=== PATIENT | female | born 1955 | race Caucasian/White ===

== ENCOUNTER 2021-03-22 20:04 | Emergency (ER) | payer OTHER ==
[2021-03-22 20:17] VITALS: TEMP 98.5; BMI 32.7
[2021-03-22 21:36] LABS: BASO % 0.6 % (0-2.0); EOS % 1.4 % (0-4.5); HEMATOCRIT 41.2 % (32.4-45.2); HEMOGLOBIN 13.9 GM/dL (10.7-15.3); LYMPH % 23.5 % (8-40); MCH 28.5 pg (25.7-33.7); MCHC 33.7 g/dl (32.0-36.0); MEAN CELL VOLUME 84.6 fl (80-96); MEAN PLT VOLUME 7.2 fl (7.5-11.1); MONO % 6.4 % (3.8-10.2); NEUT % 68.1 % (42.8-82.8); PLATELET COUNT 369 10^3/uL (134-434); RBC 4.87 M/mm3 (3.60-5.2); RDW 14.4 % (11.6-15.6); WHITE BLOOD COUNT 12.4 K/mm3 (4.0-10.0)
[2021-03-22 21:58] LABS: CHLORIDE 106 mmol/L (98-107); SODIUM 142 mmol/L (136-145)
[2021-03-22 22:00] LABS: ALBUMIN 3.9 g/dl (3.4-5.0); ANION GAP 9 MMOL/L (8-16); BLOOD UREA NITROGEN 20.6 mg/dL (7-18); CALCIUM 9.7 mg/dL (8.5-10.1); CO2 27 mmol/L (21-32); GLUCOSE,RANDOM 136 mg/dL (74-106); MAGNESIUM 1.7 mg/dL (1.8-2.4)
[2021-03-22 22:03] LABS: CREATININE 0.6 mg/dL (0.55-1.3); SGPT/ALT 51 U/L (13-61)
[2021-03-22 22:04] LABS: SGOT/AST 20 U/L (15-37)
[2021-03-22 22:05] LABS: BILIRUBIN,TOTAL 0.5 mg/dL (0.2-1); TOT PROT 7.3 g/dl (6.4-8.2)
[2021-03-22 22:06] LABS: ALK PHOS 68 U/L (45-117)
[2021-03-22 22:22] VITALS: BP 127/84; PULSE 92
== END 2021-03-22 23:12 | disposition home or self-care (01) ==
LOC: JER 20:04
DX: R07.9 Chest pain, unspecified (principal)
CPT/HCPCS: 36415; 71046-TC-FY; 80053; 82550; 83735; 84484; 85025; 85379; 93005; 93010; 99285-25

== ENCOUNTER 2024-06-08 22:05 | Emergency (ER) | payer OTHER ==
[2024-06-08 22:11] VITALS: BMI 33.0
[2024-06-08 22:22] VITALS: TEMP 98.8
[2024-06-08 22:43] LABS: HEMATOCRIT 52.9 % (32.4-45.2); HEMOGLOBIN 17.1 G/dL (10.7-15.3); MCHC 32.4 g/dl (32.0-36.0); MEAN CELL VOLUME 89.6 fl (80-96); MEAN PLT VOLUME 7.8 fl (7.5-11.1); PLATELET COUNT 345.2 10^3/uL (134-434); RDW 14.1 % (11.6-15.6); WHITE BLOOD COUNT 12.1 10^3/uL (4.0-10.8)
[2024-06-08 22:56] LABS: ALBUMIN 4.6 g/dl (3.4-5.0); BILIRUBIN,TOTAL 0.8 mg/dl (0.2-1); CALCIUM 9.9 mg/dl (8.5-10.1); CREATININE 0.7 mg/dl (0.6-1.3); POTASSIUM 3.6 mmol/L (3.5-5.1)
[2024-06-08] MEDS: SODIUM CHLORIDE 1,000 ML IV ONE (23:11)
[2024-06-09 01:13] VITALS: BP 142/85; PULSE 88; RESP 18
== END 2024-06-09 03:13 | disposition home or self-care (01) ==
LOC: FER 22:05
PROC: 3E0337Z Introduction of Electrolytic and Water Balance Substance into Peripheral Vein, Percutaneous Approach (ICD-10-PCS; principal; 2024-06-08)
DX: R07.89 Other chest pain (principal)
CPT/HCPCS: 36415; 80053; 82550; 84484; 85027; 93005; 99284-25